=== PATIENT | male | born 1955 | race Two or more races ===

== ENCOUNTER 2020-01-15 09:44 | Emergency (ER) | payer MEDICAID, MEDICARE ==
[~2020-01-15] VITALS: Ht 167.6 cm; Wt 64.0 kg
[2020-01-15 10:32] VITALS: BP 166/86
== END 2020-01-15 10:42 | disposition home or self-care (01) ==
LOC: ED 10:37
DX: B02.33 Zoster keratitis (principal)
CPT/HCPCS: 99283